=== PATIENT | male | born 1950 | race Caucasian/White ===

== ENCOUNTER 2018-06-05 09:12 | Emergency (ER) | payer MEDICARE, SELFPAY ==
--- NOTE | 2018-06-05 09:46 | ERPHSYRPT ---
- History of Present Illness Time Seen by Provider: 06/05/18 09:44 Source: patient, family Exam Limitations: no limitations Patient Subjective Stated Complaint: pt reports severe back pain for 3 days. also states he has abdominal pain without a bowel movement for 3 days. denies any difficulty urinating. reports a history of lung CA. Triage Nursing Assessment: pt is aox3, pupils perrl, resps easy and non labored , radial pulse strong and equal, pt is bradycardic, abd is firm, bowel sounds present and normoactive x4. pt skin is pale warm and dry. pain localized to the left lumbar region of the back that is constant in nature. pt denies any fall or other injury. skin is intact, no bruising swelling or deformity noted. Physician History: pt reports severe back pain for 3 days. also states he has abdominal pain without a bowel movement for 3 days. Timing/Duration: day(s) (3-4 days) Allergies/Adverse Reactions: Sulfa (Sulfonamide Antibiotics) Allergy (Verified 06/05/18 09:40) Home Medications: Amiodarone HCl 200 mg [Cordarone 200 MG] 200 mg PO DAILY 06/05/18 [History ] Amlodipine Besylate 5 mg [Norvasc 5 mg] 5 mg PO DAILY 06/05/18 [History] Aspirin EC 81 mg [Ecotrin 81 mg] 81 mg PO DAILY 06/05/18 [History] Atorvastatin Calcium [Lipitor 40Mg] 40 mg PO HS 06/05/18 [History] Losartan Potassium [Cozaar] 25 mg PO DAILY 06/05/18 [History] Metoprolol Succinate 50 mg [Toprol Xl 50 MG] 50 mg PO DAILY 06/05/18 [ History] Omeprazole 40 mg PO DAILY 06/05/18 [History] Hx Tetanus, Diphtheria Vaccination/Date Given: Yes Hx Influenza Vaccination/Date Given: Yes Hx Pneumococcal Vaccination/Date Given: Yes Immunizations Up to Date: Yes - Review of Systems Constitutional: No Fever, No Chills Eyes: No Symptoms Ears, Nose, & Throat: No Symptoms Respiratory: No Cough, No Dyspnea Cardiac: No Chest Pain, No Edema, No Syncope Abdominal/Gastrointestinal: Abdominal Pain, Constipation, No Nausea, No Vomiting , No Diarrhea Genitourinary Symptoms: No Dysuria Musculoskeletal: Back Pain, No Neck Pain Skin: No Rash Neurological: No Dizziness, No Focal Weakness, No Sensory Changes Psychological: No Symptoms Endocrine: No Symptoms All Other Systems: Reviewed and Negative - Past Medical History Pertinent Past Medical History: Yes Neurological History: No Pertinent History ENT History: No Pertinent History Cardiac History: Arrhythmia, Congestive Heart Failure, Hypertension, Other Respiratory History: Asthma, Lung Cancer, Pneumonia, Sleep Apnea Endocrine Medical History: No Pertinent History Musculoskeletal History: No Pertinent History GI Medical History: GERD History: No Pertinent History Psycho-Social History: No Pertinent History Male Reproductive Disorders: No Pertinent History Other Medical History: history of chemotherapy for 6 wks, did not respond well, pt also received radiation, mets to spine, pt oncologist is Dr. Robles. CHF d/t left ventricular systolic dysfuntion. Cardiomyopathy. Mitral valve regurgitation. Paroxysmal a-fib. Bradycardia - Past Surgical History Past Surgical History: Yes Neuro Surgical History: No Pertinent History Cardiac: CABG Respiratory: No Pertinent History Gastrointestinal: Appendectomy Genitourinary: No Pertinent History Musculoskeletal: Orthopedic Surgery Male Surgical History: No Pertinent History Other Surgical History: rt femur - Social History Smoking Status: Never smoker Exposure to second hand smoke: No Drug Use: none Patient Lives Alone: No - Nursing Vital Signs Nursing Vital Signs: Initial Vital Signs Temperature 97.6 F 06/05/18 09:17 Pulse Rate 52 L 06/05/18 09:17 Respiratory Rate 20 06/05/18 09:17 Blood Pressure 149/62 06/05/18 09:17 O2 Sat by Pulse Oximetry 95 06/05/18 09:17 Pain Scale Pain Intensity [Left Back] 8 Pain Intensity 6 - Physical Exam General Appearance: no apparent distress, alert Eye Exam: PERRL/EOMI, eyes nml inspection Neck Exam: normal inspection, non-tender, supple, full range of motion, No meningismus, No midline tenderness Respiratory Exam: normal breath sounds, lungs clear, No respiratory distress Cardiovascular Exam: regular rate/rhythm, normal heart sounds Gastrointestinal Exam: soft, No tenderness, No mass Extremity Exam: normal inspection, normal range of motion, No calf tenderness, No pedal edema Neurologic Exam: alert, oriented x 3, cooperative, 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 nml as tested, normal mood/affect, nml station & gait, sensation nml, No motor deficits Skin Exam: normal color, warm, dry, No rash SpO2: 95 - Course Nursing assessment & vital signs reviewed: Yes - Radiology Exams Chest X-ray Interpretation: Reviewed by me (bilateral multiple metastasis nodules in lung) Abdomen X-ray Interpretation: Reviewed by me (nonspecific bowel gas, no obstruction, constipated bowel) Ordered Tests: Active Orders 24 hr Category Date Time Status IV Insertion STAT Care 06/05/18 09:43 Active OBSTR/ACUTE ABDOMEN SERIES Stat Exams 06/05/18 09:39 Ordered AMYLASE Stat Lab 06/05/18 09:55 Completed CBC W DIFF Stat Lab 06/05/18 09:55 Completed CMP Stat Lab 06/05/18 09:55 Completed LIPASE Stat Lab 06/05/18 09:55 Completed Lactic Acid Stat Lab 06/05/18 09:55 Completed Manual Differential NC Stat Lab 06/05/18 09:55 Completed UA W/RFX UR CULTURE Stat Lab 06/05/18 09:39 Uncollected Medication Summary Discontinued Medications Generic Name Dose Route Start Last Admin Trade Name Freq PRN Reason Stop Dose Admin Sodium Chloride 1,000 mls @ 999 mls/hr 06/05/18 09:39 06/05/18 10:14 Sodium Chloride 0.9% 1000 Ml IV 06/05/18 10:39 999 mls/hr .Q1H1M STA Administration Sodium Chloride Confirm 06/05/18 09:47 Sodium Chloride 0.9% 1000 Ml Administered 06/05/18 09:48 Dose 1,000 mls @ ud .ROUTE .STK-MED ONE Sodium Chloride Confirm 06/05/18 10:12 Sodium Chloride 0.9% 1000 Ml Administered 06/05/18 10:13 Dose 1,000 mls @ ud .ROUTE .STK-MED ONE Magnesium Citrate 150 ml 06/05/18 09:39 06/05/18 10:13 Citroma 296 Ml PO 06/05/18 09:40 150 ml 1XONLY ONE Administration Magnesium Citrate Confirm 06/05/18 09:48 Citroma 296 Ml Administered 06/05/18 09:49 Dose 296 ml .ROUTE .STK-MED ONE Magnesium Citrate Confirm 06/05/18 10:12 Citroma 296 Ml Administered 06/05/18 10:13 Dose 296 ml .ROUTE .STK-MED ONE Lab/Rad Data: Laboratory Result Diagrams 06/05/18 09:55 06/05/18 09:55 Laboratory Results 06/05/18 06/05/18 06/05/18 Range/Units 09:55 09:55 09:55 WBC 6.1 (4.0-10.5) K/mm3 RBC 4.96 (4.1-5.6) M/mm3 Hgb 12.5 (12.5-18.0) gm/dl Hct 39.5 L (42-50) % MCV 79.6 (78-100) fl MCH 25.2 L (26-32) pg MCHC 31.6 L (32-36) g/dl RDW 17.1 H (11.5-14.0) % Plt Count 202 (150-450) K/mm3 MPV 9.1 (6-9.5) fl Absolute Granulocytes 4.88 (1.4-6.9) Segmented Neutrophils 76 H (36.-66.) % Lymphocytes (Manual) 12 L (24-44) % Monocytes (Manual) 10 (0.0-12.0) % Eosinophils (Manual) 2 (0.00-3.0) % Hypochromia 1+ Platelet Estimate NORMAL (NORMAL) RBC Morphology ABNORMAL Polychromasia 1+ Microcytosis 1+ Sodium 140 (137-145) mmol/L Potassium 4.1 (3.5-5.1) mmol/L Chloride 102 (98-107) mmol/L Carbon Dioxide 28 (22-30) mmol/L Anion Gap 14.2 (5-15) MEQ/L BUN 20 (9-20) mg/dL Creatinine 1.25 (0.66-1.25) mg/dL Estimated GFR > 60.0 ML/MIN Glucose 106 (74-106) mg/dL Lactic Acid 1.0 (0.4-2.0) Calcium 9.2 (8.4-10.2) mg/dL Total Bilirubin 0.90 (0.2-1.3) mg/dL AST 17 (17-59) U/L ALT 16 (0-50) U/L Alkaline Phosphatase 141 H (38-126) U/L Serum Total Protein 7.4 (6.3-8.2) g/dL Albumin 4.3 (3.5-5.0) g/dL Amylase 46 (30-110) U/L Lipase 30 (23-300) U/L - Progress Progress: improved, pain not gone completely Counseled pt/family regarding: lab results, diagnosis, need for follow-up, rad results - Departure Time of Disposition: 10:58 Departure Disposition: Home Clinical Impression: Abdominal pain in male, Constipation by delayed colonic transit Metastatic lung carcinoma Qualifiers: Laterality: unspecified laterality Qualified Code(s): C78.00 - Secondary malignant neoplasm of unspecified lung Condition: Stable Critical Care Time: Yes Critical Care Time(excluding separately billable procedures): 30-74 minutes Referrals: SIMONA DERAS [Primary Care Provider] - Instructions: Stages of Cancer, Bone Metastasis, Lung Cancer, Constipation, Adult (DC) Additional Instructions: ABDOMINAL PAIN 1. There are several different causes for abdominal pain, some of which may not be able to be identified on initial examination. 2. The important thing to remember is that bodily functions can change in a short period of time. If you notice any of the following symptoms, return to the emergency department or consult your doctor immediately: A. Worsening pain or no improvement in the next 12 hours. B. Increasing, severe abdominal pain C. Blood in stool D. Black stools E. Persistent vomiting F. Fever or chills or other symptoms Please follow the instructions given to you. Please take your medication as prescribed if given. If symptoms recur or get worse, come back to the emergency room if you cannot reach your primary care physician, or call your primary care physician for an appointment. Again if your symptoms get worse, come back to the emergency room. Thanks for visiting emergency room, and let us take care of you. ADRIENNE GUADARRAMA was seen on 06/05/18 n the Emergency Room. At that time you were treated for an emergent condition, during your visit Laboratory, Radiology and/or other procedures may have been ordered. It is very important that you follow-up with your Primary Care Physician SIMONA DERAS within the next 24-48 hours to review your Emergency Room visit and the final results of testing that was ordered. Some test results such as Urine Cultures, Blood Cultures, and other cultures if ordered will not be finalized for 24-48 hours. If you do not have a Primary Care Provider please call the medical records department at [phone] to obtain a copy of your results or you may sign into our patient portal to obtain these results by visiting us @ [email or web address] and completing the following steps: 1. Click on the Patient Portal link 2. Click the Patient Self Enrollment Link to complete the enrollment form and entering your 3. Once the enrollment form is completed you will receive an email with a temporary ID and password at the email address you provided. 4. Next choose a user name and password. Your user name must be at least 4 characters long and your password must be at least 4 characters long. 5. Choose a security question from the list and provide your answer to the question. If you already have signed into the Health Portal you may access your Health Care Information 24/05 by the following steps: 1. Login to our website @ [email or web address] 2. Enter your original user name and password. FAQS The [facility] Portal is an online tool that contains your Lab Results, Radiology Reports, Visit History, Discharge Instructions and Health Summary Lab and Radiology Results will not be available for 72 hours on the portal. The Portal is a secure site, passwords are encryted and URLs are re-written so they cannot be copied and pasted. You and authorized family members are the only ones who can access your Portal. Also there is a timeout feature that protects your information if you leave the Portal page open. If you have technical difficulty please use the Contact Us link on the page this will allow you to submit any questions you have regarding the Portal or you may contact the Medical Record Department at [phone]. Prescriptions: Docusate Sodium 100 mg [Colace 100 MG] 100 mg PO BID #30 cap
[2018-06-05] MEDS ORDERED: Sodium Chloride 0.9% 1000 ML 1,000 ML ONE ×2 (09:47→10:12)
[2018-06-05] MEDS ORDERED: CITROMA 296 ML ONE ×2 (09:48→10:12)
[2018-06-05 10:02] LABS: Granulocyte Absolute (ANC) 4.88 (1.4-6.9); Hematocrit 39.5 % (42-50); Hemoglobin 12.5 gm/dl (12.5-18.0); Mean Cell Volume 79.6 fl (78-100); Mean Corpuscular Hemoglobin 25.2 pg (26-32); Mean Corpuscular Hgb Concent. 31.6 g/dl (32-36); Mean Platelet Volume 9.1 fl (6-9.5); Platelet Count 202 K/mm3 (150-450); Red Blood Count 4.96 M/mm3 (4.1-5.6); Red Cell Distribution Width 17.1 % (11.5-14.0); White Blood Count 6.1 K/mm3 (4.0-10.5)
[2018-06-05] MEDS: CITROMA 296 ML PO ONE (10:13)
[2018-06-05] MEDS: Sodium Chloride 0.9% 1000 ML 1,000 ML IV STA (10:14)
[2018-06-05 10:17] LABS: ALBUMIN 4.3 g/dL (3.5-5.0); ALKALINE PHOSPHATASE 141 U/L (38-126); AMYLASE 46 U/L (30-110); ANION GAP 14.2 MEQ/L (5-15); BLOOD UREA NITROGEN 20 mg/dL (9-20); CHLORIDE 102 mmol/L (98-107); Calcium 9.2 mg/dL (8.4-10.2); Carbon Dioxide 28 mmol/L (22-30); Creatinine 1 1.25 mg/dL (0.66-1.25); Glucose 106 mg/dL (74-106); LIPASE 30 U/L (23-300); Potassium 4.1 mmol/L (3.5-5.1); SGOT/AST 17 U/L (17-59); SGPT/ALT 16 U/L (0-50); SODIUM 140 mmol/L (137-145); Total Protein 7.4 g/dL (6.3-8.2)
[2018-06-05 10:41] LABS: Eosinophil 2 % (0.00-3.0); Lymphocytes 12 % (24-44); Monocyte 10 % (0.0-12.0); Neutrophils 76 % (36.-66.); Platelet Estimate NORMAL (NORMAL); Polychromasia 1+; Total Cells Counted 100
[2018-06-05 10:42] LABS: Hypochromia 1+; Microcytosis 1+
[2018-06-05 11:35] VITALS: BP 198/87; PULSE 80; O2SAT 98
--- NOTE | 2018-06-05 19:13 | XRAY ---
Indication: Constipation. Comparison: Chest exam April 07, 2016. 2 views of the abdomen demonstrates nonspecific nonobstructed bowel gas pattern with 6 mm left renal calculus. No focal bowel dilatation or free air. Solid organs unremarkable. Osseous structures intact with old right hip fracture and partially visualized orthopedic hardware. Single PA chest demonstrates again diffuse bilateral pulmonary metastasis increased in number/size. No consolidation or large effusion. Heart is not enlarged and again demonstrates CABG surgery. Bony thorax intact. Impression: Left renal micro-calculus better evaluated with CT if clinically warranted. Worsening diffuse pulmonary metastasis.
== END 2018-06-05 11:35 | disposition home or self-care (01) ==
LOC: ED 09:12
DX: R10.9 Unspecified abdominal pain (principal); K59.01 Slow transit constipation; K31.9 Disease of stomach and duodenum, unspecified; C78.00 Secondary malignant neoplasm of unspecified lung; I10 Essential (primary) hypertension; I50.9 Heart failure, unspecified; J45.909 Unspecified asthma, uncomplicated; G47.30 Sleep apnea, unspecified; K21.9 Gastro-esophageal reflux disease without esophagitis; Z79.899 Other long term (current) drug therapy; I34.0 Nonrheumatic mitral (valve) insufficiency; I42.9 Cardiomyopathy, unspecified
CPT/HCPCS: 36415; 74022; 80053; 82150; 83605; 83690; 85025; 96360; 99284; A9270-GY